=== PATIENT | male | born 1935 | race Caucasian/White ===

== ENCOUNTER 2024-01-30 13:12 | Outpatient (CLI) | payer MEDICARE | END 2024-01-30 13:13 | disposition home or self-care (01) | LOC: BICMAMMO 13:12 | PROVIDERS: ATTEND Internal Medicine Rheumatology | DX: M80.00XS Age-related osteoporosis with current pathological fracture, unspecified site, sequela (principal); M85.89 Other specified disorders of bone density and structure, multiple sites | CPT/HCPCS: 77080 ==